=== PATIENT | female | born 1935 | race Caucasian/White ===

== ENCOUNTER → 2016-07-02 | Outpatient (CLI) | payer OTHER, MEDICARE ==
[~2016-07-02] MED LIST: ASPIR 8181 MG PO; BENZONATATE200 MG PO; CARDIZEM CD180 MG PO; CENTRUM SILVER1 EAC4 PO; CLARITIN10 MG PO; COZAAR 50 MG TA50 M2 PO; DEMADEX 2020 MG/1 TA PO; GLUCOTROL5 MG PO; HYDROCODONE-AP1 EAC6 PO; KLOR-CON 1010 MEQ PO; LOPRESSOR50 PO; METFORMIN HCL500 MG PO; PACERONE 200 M200 M1 PO; XARELTO15 MG PO; ZOCOR40 MG PO
== END ==
LOC: RAD 11:10
DX: R05 Cough (principal)

== ENCOUNTER → 2019-06-29 | Outpatient (CLI) | payer OTHER, MEDICARE | LOC: SJCVC 14:20 | DX: Z51.81 Encounter for therapeutic drug level monitoring (principal); I48.0 Paroxysmal atrial fibrillation; I11.0 Hypertensive heart disease with heart failure; I50.32 Chronic diastolic (congestive) heart failure; E11.9 Type 2 diabetes mellitus without complications; Z79.01 Long term (current) use of anticoagulants ==

== ENCOUNTER → 2019-07-26 | Outpatient (CLI) | payer OTHER, MEDICARE | LOC: SJCVC 11:27 | DX: Z51.81 Encounter for therapeutic drug level monitoring (principal); Z79.01 Long term (current) use of anticoagulants ==

== ENCOUNTER → 2019-08-25 | Outpatient (CLI) | payer OTHER, MEDICARE | LOC: SJCVC 12:10 | DX: Z51.81 Encounter for therapeutic drug level monitoring (principal); Z79.82 Long term (current) use of aspirin; Z79.01 Long term (current) use of anticoagulants; Z90.49 Acquired absence of other specified parts of digestive tract; Z79.899 Other long term (current) drug therapy ==

== ENCOUNTER → 2019-09-30 | Outpatient (CLI) | payer OTHER, MEDICARE | LOC: SJCVC 13:15 | DX: Z79.01 Long term (current) use of anticoagulants (principal); I48.91 Unspecified atrial fibrillation; E78.2 Mixed hyperlipidemia; G56.02 Carpal tunnel syndrome, left upper limb; I11.0 Hypertensive heart disease with heart failure; E78.00 Pure hypercholesterolemia, unspecified; M19.90 Unspecified osteoarthritis, unspecified site; E11.9 Type 2 diabetes mellitus without complications ==

== ENCOUNTER → 2019-11-04 | Outpatient (CLI) | payer OTHER, MEDICARE | LOC: SJCVC 13:33 | DX: Z51.81 Encounter for therapeutic drug level monitoring (principal); I48.0 Paroxysmal atrial fibrillation; I50.9 Heart failure, unspecified; I11.0 Hypertensive heart disease with heart failure; E11.9 Type 2 diabetes mellitus without complications; E78.00 Pure hypercholesterolemia, unspecified; E78.5 Hyperlipidemia, unspecified; E66.9 Obesity, unspecified; Z68.39 Body mass index [BMI] 39.0-39.9, adult; Z79.01 Long term (current) use of anticoagulants; Z79.82 Long term (current) use of aspirin; Z79.899 Other long term (current) drug therapy ==

== ENCOUNTER → 2019-12-02 | Outpatient (CLI) | payer OTHER, MEDICARE | LOC: SJCVC 13:26 | PROVIDERS: ATTEND Internal Medicine | DX: Z51.81 Encounter for therapeutic drug level monitoring (principal); I48.0 Paroxysmal atrial fibrillation; E11.9 Type 2 diabetes mellitus without complications; I11.0 Hypertensive heart disease with heart failure; I50.32 Chronic diastolic (congestive) heart failure; M15.9 Polyosteoarthritis, unspecified; E78.00 Pure hypercholesterolemia, unspecified; E66.9 Obesity, unspecified; Z68.35 Body mass index [BMI] 35.0-35.9, adult; Z79.01 Long term (current) use of anticoagulants; Z79.82 Long term (current) use of aspirin; Z79.84 Long term (current) use of oral hypoglycemic drugs; Z79.899 Other long term (current) drug therapy ==

== ENCOUNTER → 2019-12-14 | Outpatient (CLI) | payer OTHER, MEDICARE | LOC: SJCVCIMAG 07:45 | PROVIDERS: ATTEND Internal Medicine | DX: I08.8 Other rheumatic multiple valve diseases (principal); I48.92 Unspecified atrial flutter; I44.30 Unspecified atrioventricular block; R94.31 Abnormal electrocardiogram [ECG] [EKG]; I48.0 Paroxysmal atrial fibrillation; R53.83 Other fatigue; I11.0 Hypertensive heart disease with heart failure; I50.32 Chronic diastolic (congestive) heart failure; E78.5 Hyperlipidemia, unspecified; E11.9 Type 2 diabetes mellitus without complications; Z79.01 Long term (current) use of anticoagulants; Z79.82 Long term (current) use of aspirin; Z79.84 Long term (current) use of oral hypoglycemic drugs; Z95.4 Presence of other heart-valve replacement; Z79.899 Other long term (current) drug therapy; Z82.49 Family history of ischemic heart disease and other diseases of the circulatory system ==

== ENCOUNTER → 2019-12-21 | Outpatient (CLI) | payer OTHER, MEDICARE ==
[~2019-12-21] MED LIST changes: +ASA81BEC PO; +MAG6464 MG PO; +PACERONE200 MG PO; +TORSEMIDE20 MG PO; +XARELTO20 MG PO
== END ==
LOC: SJCVC 11:20
PROVIDERS: ATTEND Internal Medicine Cardiovascular Disease
DX: R94.31 Abnormal electrocardiogram [ECG] [EKG] (principal); I48.91 Unspecified atrial fibrillation

== ENCOUNTER → 2019-12-31 | Outpatient (CLI) | payer OTHER, MEDICARE ==
[~2019-12-31] VITALS: Ht 152.4 cm; Wt 82.6 kg
[2019-12-31 07:14] VITALS: BP 115/52
--- NOTE | 2019-12-31 10:00 | TEE ---
[facility] [place] [address] TRANSESOPHAGEAL ECHOCARDIOGRAM Name: JUNIE SOLANO Room #: REG WENDY Prakash#: [id number] Admission: 12/31/19 Attend Phys: Houston Martínez MD, Discharge: Date of : 39 Report #: [id number] THIS REPORT FOR: cc: Booker Martinez MD, Rene P. MD Lundgren, Craig H. MD [facility] ~ APPROVED REPORT Study performed: 12/31/2019 07:53:09 EXAM: Transesophageal Echocardiogram with Doppler and Cardioversion Patient Location: Out-Patient Room #: 9 Status: routine BSA: 1.81 HR: 112 bpm BP: 121/85 mmHg Rhythm: Atrial Fibrillation Other Information Study Quality: Good Indications Atrial Fibrillation Echo Enhancing Agent Indication: Rule out Shunt Agent(s) / Amount(s) Used: Agitated Saline 7 cc Procedure After obtaining informed consent, patient underwent transesophageal echo in the [employer]. Type of Sedation : Conscious Sedation Sedation was achieved intravenously with: Versed () Fentanyl (65 mcg) Transesophageal probe was inserted and advanced into esophagus without difficulty by Houston Martínez MD. Echo enhancement indication: R/O Septal defect. Echo enhancement agent administered: Agitated Saline The KELLIE was performed without complications. Synchronized Cardioversion acheived with 120 Joules after 1 attempt(s). Rhythm following Synchronized Cardioversion: Normal Sinus Rhythm [facility] [address] [place] [address] TRANSESOPHAGEAL ECHOCARDIOGRAM Name: JUNIE SOLANO Room #: REG [facility]#: [id number] Admission: 12/31/19 Attend Phys: Houston Martínez, Discharge: Date of : 39 Report #: [id number] Throughout the procedure, the blood pressure, pulse oximetry, cardiac rhythm, and rate were monitored. The patient tolerated the procedure without adverse effects. Recovery from conscious sedation was uneventful and vital signs were stable. Left Ventricle The left ventricle is normal size. There is normal LV segmental wall motion. There is normal left ventricular wall thickness. The left ventricular systolic function is normal. The left ventricular ejection fraction is within the normal range. LVEF is 55-60%. Right Ventricle The right ventricle is normal size. The right ventricular systolic function is normal. Atria Left atrium is dilated. No thrombus is visualized in the left atrium or appendage. No shunting by contrast bubble injection Right atrium is dilated. Aortic Valve Bioprosthetic aortic valve is present (s/p TAVR) No aortic regurgitation is present. There is no aortic valvular stenosis. Mitral Valve Moderate mitral annular calcification Moderate mitral regurgitation. No evidence of mitral valve stenosis. Tricuspid Valve The tricuspid valve is normal in structure. Mild tricuspid regurgitation. Pulmonic Valve The pulmonary valve is normal in structure. There is no pulmonic valvular regurgitation. Great Vessels The aortic root is normal in size. The ascending aorta is normal in size. IVC is normal in size and collapses >50% with inspiration. Pericardium There is no pericardial effusion. [facility] [address] [place] [address] TRANSESOPHAGEAL ECHOCARDIOGRAM Name: JUNIE SOLANO Room #: REG [facility]#: [id number] Admission: 12/31/19 Attend Phys: Houston Martínez, Discharge: Date of : 39 Report #: [id number] <Conclusion> The left ventricular systolic function is normal. There is normal LV segmental wall motion. LVEF is 55-60%. Both atria are dilated. No thrombus is visualized in the left atrium or appendage. No shunting by contrast bubble injection Bioprosthetic aortic valve is present (s/p TAVR). No aortic regurgitation or stenosis. Moderate mitral annular calcification. Moderate mitral regurgitation. There is no pericardial effusion. Successful cardioversion of atrial fibrillation to sinus rhythm following a single 120 J biphasic synchronous shock. <ELECTRONICALLY SIGNED> By: Houston Martínez MD, FACC 12/31/19 1000 1000 9 Houston Martínez MD, FACC /INF
== END | disposition home or self-care (01) ==
LOC: CATH 06:20
PROVIDERS: ATTEND Internal Medicine
DX: I48.91 Unspecified atrial fibrillation (principal); I08.1 Rheumatic disorders of both mitral and tricuspid valves; I11.0 Hypertensive heart disease with heart failure; I50.9 Heart failure, unspecified; E11.9 Type 2 diabetes mellitus without complications; E78.00 Pure hypercholesterolemia, unspecified; Z98.890 Other specified postprocedural states; Z79.899 Other long term (current) drug therapy; Z11.59 Encounter for screening for other viral diseases; Z90.49 Acquired absence of other specified parts of digestive tract; Z79.4 Long term (current) use of insulin; Z79.01 Long term (current) use of anticoagulants; Z79.82 Long term (current) use of aspirin; Z95.2 Presence of prosthetic heart valve

== ENCOUNTER → 2020-02-02 | Outpatient (CLI) | payer OTHER, MEDICARE | LOC: SJCVC 13:36 | PROVIDERS: ATTEND Internal Medicine Cardiovascular Disease | DX: I48.0 Paroxysmal atrial fibrillation (principal); R94.31 Abnormal electrocardiogram [ECG] [EKG]; I11.0 Hypertensive heart disease with heart failure; I50.32 Chronic diastolic (congestive) heart failure; E11.9 Type 2 diabetes mellitus without complications; E78.5 Hyperlipidemia, unspecified; Z79.01 Long term (current) use of anticoagulants; Z95.2 Presence of prosthetic heart valve; Z79.82 Long term (current) use of aspirin; Z79.899 Other long term (current) drug therapy; Z82.49 Family history of ischemic heart disease and other diseases of the circulatory system ==

== ENCOUNTER → 2020-02-07 | Outpatient (CLI) | payer OTHER, MEDICARE ==
[~2020-02-07] MED LIST changes: +AVAPRO300 MG PO; +DEMADEX20 MG PO; +LOPRESSOR100 M1 PO; +LOPRESSOR50 MG PO; +ZOCOR20 MG PO
[2020-02-07 10:27] LABS: ABSOLUTE NEUTROPHILS 2.2 thou/uL (1.4-8.2); BASOPHILS 1.4 % (0.0-2.0); EOSINOPHILS 6.1 % (0.0-3.0); HEMATOCRIT 32.5 % (37.0-47.0); HEMOGLOBIN 10.8 gm/dL (12.0-15.0); LYMPHOCYTES 36.8 % (24.0-44.0); MCH 30.5 pg (26.0-34.0); MCHC 33.2 g/dL (28.0-37.0); MCV 91.9 fL (80.0-100.0); MONOCYTES 10.8 % (1.0-8.0); PLATELET COUNT 250 thou/uL (150-400); POLYS 44.9 % (36.0-66.0); RBC 3.54 mil/uL (4.20-5.00); RDW 15.4 % (10.5-14.5); WBC 4.8 thou/uL (4.0-11.0)
[2020-02-07 10:41] LABS: ALBUMIN 3.6 g/dL (3.4-5.0); CALCIUM 9.1 mg/dL (8.5-10.1); CREATININE 1.6 mg/dL (0.6-1.0); POTASSIUM 4.5 mmol/L (3.5-5.1); TOTAL BILIRUBIN 0.6 mg/dL (0.2-1.0); TOTAL PROTEIN 7.4 g/dL (6.4-8.2)
== END ==
LOC: CAT 09:27 → LAB 11:21
PROVIDERS: ATTEND Internal Medicine Cardiovascular Disease
DX: Z01.818 Encounter for other preprocedural examination (principal); I25.10 Atherosclerotic heart disease of native coronary artery without angina pectoris; I48.91 Unspecified atrial fibrillation; Z20.828 Contact with and (suspected) exposure to other viral communicable diseases

== ENCOUNTER 2020-02-11 09:16 | Outpatient (CLI) | payer OTHER, MEDICARE ==
[~2020-02-11] VITALS: Ht 154.9 cm; Wt 83.0 kg
[2020-02-11] VITALS (10 sets, daily range): BP systolic 108–161; BP diastolic 32–84
[~2020-02-11 09:16] MED LIST changes: -AVAPRO300 MG PO; -DEMADEX20 MG PO; -LOPRESSOR100 M1 PO; -LOPRESSOR50 MG PO; -ZOCOR20 MG PO
[2020-02-11] MEDS ORDERED: LOPRESSOR50 MG PO (10:39)
[2020-02-11] MEDS ORDERED: LOPRESSOR100 M1 PO (10:39)
[2020-02-11] MEDS ORDERED: DEMADEX20 MG PO (10:41)
[2020-02-11 10:43] LABS: HEMATOCRIT 32.2 % (37.0-47.0); HEMOGLOBIN 10.6 gm/dL (12.0-15.0); MCH 30.1 pg (26.0-34.0); MCV 91.2 fL (80.0-100.0); PLATELET COUNT 241 thou/uL (150-400); RBC 3.54 mil/uL (4.20-5.00); RDW 14.9 % (10.5-14.5); WBC 4.1 thou/uL (4.0-11.0)
[2020-02-11] MEDS ORDERED: ZOCOR20 MG PO (10:43)
[2020-02-11] MEDS ORDERED: AVAPRO300 MG PO (10:43)
[2020-02-11 10:50] LABS: CREATININE 1.4 mg/dL (0.6-1.0); POTASSIUM 4.3 mmol/L (3.5-5.1)
[2020-02-11 10:58] LABS: ALBUMIN 3.5 g/dL (3.4-5.0); TOTAL BILIRUBIN 0.7 mg/dL (0.2-1.0); TOTAL PROTEIN 7.6 g/dL (6.4-8.2)
[2020-02-11 11:04] LABS: APTT 32.9 Seconds (24.5-32.8); INR 1.1; PROTIME 11.4 Seconds (9.3-11.4)
[2020-02-11 11:11] LABS: ABSOLUTE NEUTROPHILS 2.1 thou/uL (1.4-8.2)
[2020-02-11 11:13] LABS: ANISOCYTOSIS 1+
--- NOTE | 2020-02-11 16:11 | NUR ---
JAMES RN TOOK REPORT, I REC PT IMMEDIATELY AFTER LUNCH, WILL GET CLARIFICATION ON ORDERS, STOP COCK CLOSURE AND PT COUGHING YET PLACING PRESSURE APPEARS DANGEROUS. WILL DO ADMISSION WITH HELP OF HER AND SPOUSE, SHE IS A&0X4, NORMALLY AMB WITHOUT ANY ASSISTIVE DEVICE. ENCOURAGED HER AND SPOUSE TO USE CALL LIGHT FOR ANY NEEDS. WILL CONTINUE TO MONITOR
[2020-02-12 00:37] VITALS: BP 123/41
[2020-02-12 03:30] VITALS: BP 136/61
[2020-02-12 08:11] VITALS: BP 150/69
--- NOTE | 2020-02-12 08:19 | NUR ---
ASSUME CARE 1900. PT/VITALS STABLE. MODERATE ACTIVTIY TOLERANCE. DENEIS ANY PAIN. ASSESSMENT CHARTED. PROGRESSING MODERATELY WITH POC. SR ON MONITOR WITH NO DISTRESS NOTED. PT PASSING FLATUS BUT NO BM NOTED. BORDERLINE URINE OUTPUT, BRAY LEFT IN PLACE AND COMMUNICATED TO DAY NURSE TO MONITOR URIEN OUTPUT. IF IMPROVING, THEN BRAY CAN BE D/C'ED. PT ENCOURAGED TO DRINK PLENTY OF FLUIDS. REGULAR HR RATE/RYHTHM NOTED. THROUGH THE SHIFT. PLAN IS POSSIBLE DISCHARGE TODAY. WILL CONTINUE TO MONITOR AND FOLLOW WITH POC
--- NOTE | 2020-02-12 09:35 | NUR ---
ASSUMED CARE OF PT AT SHIFT CHANGE, A&0X4, SITE CDI, PT HAD BLED AGAIN AFTER BEING ASSESSED LAST NIGHT. MINIMAL OUTPUT, MORE NOW THIS A.M. AND MORE MURRAY, PT DRINKING FLUIDS, BRAY REMAINS IN PLACE TO ENSURE ADEQUATE OUTPUT. AMB STEADY AND SLOWLY, BLOOD SUGAR CHECKS, AM AMIODARONE NOT AVAILABLE, WILL GIVE WHEN AVAILABLE. ENCOURAGED PT TO USE CALL LIGHT FOR ANY NEEDS
[2020-02-12 11:02] VITALS: BP 126/59
[2020-02-12 14:08] VITALS: BP 126/59
--- NOTE | 2020-02-14 11:36 | P ---
[facility] [place] [address] PROCEDURE REPORT Name: JUNIE SOLANO Room #: DEP WENDY Prakash#: [id number] Admission: 02/11/20 Attend Phys: Andrew Ruffin MD Discharge: 02/12/20 Date of : 39 Report #: [id number] THIS REPORT FOR: cc: Booker Martinez MD, Rene P. MD Couchonnal, Luis F. MD ~ CC: Andrew Martinez ATRIAL FIBRILLATION ABLATION PREOPERATIVE DIAGNOSIS: Atrial fibrillation. POSTOPERATIVE DIAGNOSIS: Atrial fibrillation. PROCEDURES PERFORMED: 1. Atrial fibrillation ablation, CPT code 63777. 2. 3D mapping, CPT code 76144. 3. Intracardiac echo, CPT code 82195. 4. Focal ablation, CPT code 45334. HISTORY: The patient is an 84-year-old female with a history of recurrent atrial fibrillation as well as prior aortic stenosis, status post surgical followed by TAVR repair. She has had clinical recurrence despite antiarrhythmic drug therapy and she is here for an ablation. ANESTHESIA: The patient underwent general anesthesia with no anesthesia-related complications. DESCRIPTION OF PROCEDURE: The patient underwent informed consent. We discussed the details of the procedure including the risks, which include but not limited to bleeding, infection, vascular damage, cardiac perforation, stroke and ND. She understood these risks and is willing to proceed. The patient was brought to EP laboratory in fasting and sedated state, prepped and draped in a sterile fashion and injected lidocaine to the right groin region, obtained access to the right femoral vein x 3, placing an 8, 9 and 7-Belizean short sheath using the modified Seldinger technique. Next, under fluoroscopy, a decapolar catheter was placed easily in the coronary sinus and ICE catheter was placed in the right atrium. Using intracardiac ultrasound, a 3D geometry of the left atrium was created with emphasis of the two left and two right pulmonary veins. This was merged with the cardiac CT scan. The patient was then systemically heparinized and transseptal was performed using an SL1 sheath and a Eldridge needle. She did have somewhat of a thick interatrial septum. I was able to get my SL1 sheath into the left atrium and then exchanged for the cryo sheath. 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 I then placed the cryoballoon into the left atrium and we started by [address] [address] PROCEDURE REPORT Name: JUNIE SOLANO Room #: DEP [facility] Dwain#: [id number] Admission: 02/11/20 Attend Phys: Andrew Ruffin MD Discharge: 02/12/20 Date of : 39 Report #: [id number] isolating the pulmonary veins. In the left superior pulmonary vein, I started by doing a 60-second freeze, but temperatures were poor, so I came off. I performed 280-second freezes. This did not appear to result in isolation. I therefore went to the right inferior pulmonary vein. I performed a 4-minute freeze, which resulted in isolation in 40 seconds and I performed a second freeze of 180 seconds' duration. I then went back to the left inferior pulmonary vein, hoping that this had isolated it, but that was not the case. I therefore performed another 180-second freeze, which resulted in slowing, but did not result in isolation. I therefore performed an injection of the vein and I got a good seal wall really clocking the balloon. This final freeze was of 4 minutes' duration and resulted in isolation within 70 seconds. I then turned my attention to the right inferior pulmonary vein. The right inferior pulmonary vein underwent a 4-minute freeze resulting in isolation in 24 seconds and the right superior pulmonary vein underwent a single 180-second freeze as the vein isolated within 57 seconds. I then decided to perform posterior wall isolation. I performed 3 freezes along the posterior roofline anchored from the left superior pulmonary vein and I performed 3 freezes anchored from the left inferior pulmonary vein along the posterior wall as well. This did result in organization of the atrial fib into a left-sided atrial flutter. This did not result in termination of this left-sided flutter and it eventually did degenerate back into AFib. Of note, while performing the posterior wall freezes, I closely monitored the esophageal temperatures. These all remained within normal limits. Each of these posterior wall freezes was of 3 minutes' duration. I therefore removed the cryoballoon from the left atrium and created a detailed voltage map which showed that we had isolated all 4 pulmonary veins and also isolated the posterior wall of the left atrium. At this point, we performed a cardioversion with muslim of sinus rhythm. Post-ablation, there was no pericardial effusion. The patient received systemic protamine and a [id number]-xy-tbsqy suture was performed to the right groin region with a 3-way stopcock placed to obtain hemostasis. The patient awoke neurologically and hemodynamically intact. No complications and no significant bleeding. CONCLUSIONS: 1. Successful atrial fibrillation ablation. 2. Successful pulmonary vein isolation. 3. Successful left atrial posterior wall isolation. <ELECTRONICALLY SIGNED> By: Andrew Ruffin MD 02/14/20 1136 1530 1547 Andrew Ruffin MD /win
--- NOTE | 2020-02-14 12:41 | D ---
[facility] [place] [address] [place] [address] DISCHARGE SUMMARY Name: JUNIE SOLANO Room #: DEP [facility]#: [id number] Admission: 02/11/20 Attend Phys: Andrew Ruffin MD Discharge: 02/12/20 Date of : 39 Report #: [id number] THIS REPORT FOR: cc: Booker Martinez MD, Rene P. MD Lammoglia, Francisco J. MD ~ THIS REPORT FOR: //name// CC: Andrew Martinez DATE OF SERVICE: 02/12/2020 ADMITTING DIAGNOSES: 1. Symptomatic paroxysmal atrial fibrillation. 2. Tachybrady syndrome. 3. Valvular heart disease, status post aortic valve replacement. 4. Hypertension. 5. Heart failure with preserved ejection fraction. DISCHARGE MEDICATIONS: Home meds. PROCEDURE PERFORMED: Atrial fibrillation ablation. FOLLOWUP: 1. Dr. Ruffin in 3 months. 2. Primary care in 10-14 days. DISCHARGE DIET: Home diet. BRIEF CLINICAL HISTORY: The patient was admitted to the hospital for her atrial fibrillation and underwent uncomplicated atrial fibrillation. The patient post-procedure had some mild oozing from the puncture site, but this was controlled with added pressure and rest. She is ambulating without any significant changes or abnormalities currently and is being discharged in stable and improved condition. <ELECTRONICALLY SIGNED> By: Shawn Bonilla MD 02/14/20 1241 1042 1138 Shawn Bonilla MD /win
== END 2020-02-12 12:45 | disposition home or self-care (01) ==
LOC: CATH 09:16 → 2N 16:18 → CATH 02-12 12:45
PROVIDERS: ATTEND Internal Medicine Cardiovascular Disease
DX: I48.91 Unspecified atrial fibrillation (principal); I11.0 Hypertensive heart disease with heart failure; I50.9 Heart failure, unspecified; E78.00 Pure hypercholesterolemia, unspecified; E11.9 Type 2 diabetes mellitus without complications; E78.5 Hyperlipidemia, unspecified; Z98.890 Other specified postprocedural states; Z79.899 Other long term (current) drug therapy; Z79.01 Long term (current) use of anticoagulants; Z95.2 Presence of prosthetic heart valve
CPT/HCPCS: 10081; 62110; 62900; 65020; 65040; 70005

== ENCOUNTER → 2020-03-09 | Outpatient (CLI) | payer OTHER, MEDICARE ==
[~2020-03-09] MED LIST changes: +AVAPRO300 MG PO; +DEMADEX20 MG PO; +LOPRESSOR100 M1 PO; +LOPRESSOR50 MG PO; +ZOCOR20 MG PO
== END ==
LOC: SJCVC 10:47
PROVIDERS: ATTEND Internal Medicine
DX: I48.0 Paroxysmal atrial fibrillation (principal); I11.0 Hypertensive heart disease with heart failure; I50.32 Chronic diastolic (congestive) heart failure; E11.9 Type 2 diabetes mellitus without complications; E78.5 Hyperlipidemia, unspecified; Z79.01 Long term (current) use of anticoagulants; Z95.2 Presence of prosthetic heart valve; Z79.899 Other long term (current) drug therapy; Z85.3 Personal history of malignant neoplasm of breast; Z90.49 Acquired absence of other specified parts of digestive tract; Z95.4 Presence of other heart-valve replacement; Z82.49 Family history of ischemic heart disease and other diseases of the circulatory system

== ENCOUNTER → 2020-05-17 | Outpatient (CLI) | payer OTHER, MEDICARE | LOC: SJCVC 13:40 | PROVIDERS: ATTEND Internal Medicine Cardiovascular Disease | DX: R94.31 Abnormal electrocardiogram [ECG] [EKG] (principal); I45.10 Unspecified right bundle-branch block; I44.0 Atrioventricular block, first degree; I48.0 Paroxysmal atrial fibrillation; I11.0 Hypertensive heart disease with heart failure; I50.32 Chronic diastolic (congestive) heart failure; E11.9 Type 2 diabetes mellitus without complications; Z95.2 Presence of prosthetic heart valve; Z79.01 Long term (current) use of anticoagulants; Z79.82 Long term (current) use of aspirin; Z79.899 Other long term (current) drug therapy ==

== ENCOUNTER → 2020-08-03 | Outpatient (CLI) | payer OTHER, MEDICARE | LOC: SJCVC 14:23 | PROVIDERS: ATTEND Internal Medicine Cardiovascular Disease | DX: I48.91 Unspecified atrial fibrillation (principal); R94.31 Abnormal electrocardiogram [ECG] [EKG]; I45.10 Unspecified right bundle-branch block; I11.0 Hypertensive heart disease with heart failure; I50.32 Chronic diastolic (congestive) heart failure; E11.9 Type 2 diabetes mellitus without complications; I27.20 Pulmonary hypertension, unspecified; E78.5 Hyperlipidemia, unspecified; Z95.2 Presence of prosthetic heart valve; Z90.49 Acquired absence of other specified parts of digestive tract; Z98.890 Other specified postprocedural states; Z79.82 Long term (current) use of aspirin; Z79.84 Long term (current) use of oral hypoglycemic drugs; Z79.899 Other long term (current) drug therapy; Z82.49 Family history of ischemic heart disease and other diseases of the circulatory system ==

== ENCOUNTER → 2020-08-14 | Outpatient (CLI) | payer OTHER, MEDICARE | LOC: LAB 08:41 | PROVIDERS: ATTEND Family Medicine | DX: Z01.812 Encounter for preprocedural laboratory examination (principal); Z20.822 Contact with and (suspected) exposure to COVID-19 ==

== ENCOUNTER → 2020-08-17 | Outpatient (CLI) | payer OTHER, MEDICARE ==
[~2020-08-17] VITALS: Ht 154.9 cm; Wt 78.9 kg
--- NOTE | ~2020-08-17 | P ---
[facility] [place] [address] PROCEDURE REPORT Name: JUNIE SOLANO Room #: REG [facility].#: [id number] Admission: 08/17/20 Attend Phys: Andrew Ruffin MD Discharge: Date of : 39 Report #: [id number] THIS REPORT FOR: cc: Booker Martinez MD, Rene P. MD ~ PROCEDURE: Cardioversion. PREOPERATIVE DIAGNOSIS: Atrial fibrillation. POSTOPERATIVE DIAGNOSIS: Atrial fibrillation. DESCRIPTION OF PROCEDURE: The patient underwent informed consent. She was prepped and draped in the standard fashion. She was sedated by the Anesthesiology Service and then underwent 200 joules synchronized cardioversion with buddhism of sinus rhythm. There were no complications. CONCLUSION: Successful DC cardioversion with buddhism of sinus rhythm. By: 1150 1845 /nt
[2020-08-17 10:40] VITALS: BP 155/86
--- NOTE | 2020-08-17 11:00 | EKG ---
[place] [address] [address] [facility] [employer] [address] ELECTROCARDIOGRAM REPORT Name: JUNIE SOLANO Room #: [facility]#: [id number] Admission: 08/17/20 Attend Phys: Andrew Ruffin MD Discharge: Date of : 39 Report #: [id number] [facility] Test Date: 2020-08-17 Test Time: 10:42:47 Pat Name: JUNIE SOLANO Department: Room: Gender: F Chicken Handler: : 1935 Requested By: Andrew Ruffin Order Number: [id number] MD: Otto Adams Measurements Intervals [place] Rate: 112 P: 0 WI: QRS: 109 QRSD: 152 T: -34 QT: 421 QTc: 575 Interpretive Statements Sinus tachycardia Right bundle branch block Abnormal T, consider ischemia, lateral leads Compared to ECG 05/27/2016 09:13:11 Right bundle-branch block now present Possible ischemia now present Sinus rhythm no longer present T-wave abnormality still present Electronically Signed On 08-17-2020 11:00:27 [employer]PER[employer] by Otto Adams [email or web address] <ELECTRONICALLY SIGNED> By: Otto Adams MD, FACC 08/17/20 1100 1042 1042 Otto Adams MD, [facility] /EPI
[2020-08-17 11:02] LABS: ABSOLUTE NEUTROPHILS 1.7 thou/uL (1.4-8.2); BASOPHILS 1.1 % (0.0-2.0); EOSINOPHILS 5.8 % (0.0-3.0); HEMOGLOBIN 11.6 gm/dL (12.0-15.0); MCH 27.3 pg (26.0-34.0); MCHC 33.1 g/dL (28.0-37.0); MCV 82.4 fL (80.0-100.0); MONOCYTES 15.1 % (1.0-8.0); PLATELET COUNT 215 thou/uL (150-400); RBC 4.25 mil/uL (4.20-5.00); RDW 17.2 % (10.5-14.5); WBC 4.1 thou/uL (4.0-11.0)
[2020-08-17 11:11] LABS: CALCIUM 9.4 mg/dL (8.5-10.1); CREATININE 1.9 mg/dL (0.6-1.0); POTASSIUM 4.5 mmol/L (3.5-5.1)
[2020-08-17 11:16] LABS: INR 1.4; PROTIME 15.2 Seconds (9.3-11.4)
== END | disposition home or self-care (01) ==
LOC: CATH 07:47
PROVIDERS: ATTEND Internal Medicine Cardiovascular Disease
DX: I48.91 Unspecified atrial fibrillation (principal); I11.0 Hypertensive heart disease with heart failure; I50.30 Unspecified diastolic (congestive) heart failure; E11.9 Type 2 diabetes mellitus without complications; E78.00 Pure hypercholesterolemia, unspecified; E78.5 Hyperlipidemia, unspecified; Z98.890 Other specified postprocedural states; Z79.899 Other long term (current) drug therapy; Z79.01 Long term (current) use of anticoagulants; Z95.2 Presence of prosthetic heart valve
CPT/HCPCS: 62110; 62900

== ENCOUNTER → 2020-09-19 | Outpatient (CLI) | payer OTHER, MEDICARE | LOC: SJCVC 10:53 | PROVIDERS: ATTEND Internal Medicine Cardiovascular Disease | DX: R94.31 Abnormal electrocardiogram [ECG] [EKG] (principal); I44.0 Atrioventricular block, first degree; I45.10 Unspecified right bundle-branch block; I48.19 Other persistent atrial fibrillation; I44.7 Left bundle-branch block, unspecified; I11.0 Hypertensive heart disease with heart failure; I50.32 Chronic diastolic (congestive) heart failure; I35.0 Nonrheumatic aortic (valve) stenosis; E78.5 Hyperlipidemia, unspecified; E11.9 Type 2 diabetes mellitus without complications; Z79.82 Long term (current) use of aspirin; Z79.84 Long term (current) use of oral hypoglycemic drugs; Z79.899 Other long term (current) drug therapy; Z95.4 Presence of other heart-valve replacement ==

== ENCOUNTER → 2020-11-22 | Outpatient (CLI) | payer OTHER, MEDICARE | LOC: SJCVCIMAG 08:32 | PROVIDERS: ATTEND Internal Medicine | DX: I08.1 Rheumatic disorders of both mitral and tricuspid valves (principal); R94.31 Abnormal electrocardiogram [ECG] [EKG]; I44.0 Atrioventricular block, first degree; I45.10 Unspecified right bundle-branch block; I77.819 Aortic ectasia, unspecified site; I27.20 Pulmonary hypertension, unspecified; I48.0 Paroxysmal atrial fibrillation; I11.0 Hypertensive heart disease with heart failure; I50.32 Chronic diastolic (congestive) heart failure; E78.5 Hyperlipidemia, unspecified; E11.9 Type 2 diabetes mellitus without complications; Z95.2 Presence of prosthetic heart valve; Z90.49 Acquired absence of other specified parts of digestive tract; Z79.01 Long term (current) use of anticoagulants; Z79.84 Long term (current) use of oral hypoglycemic drugs; Z79.82 Long term (current) use of aspirin; Z79.899 Other long term (current) drug therapy; Z82.49 Family history of ischemic heart disease and other diseases of the circulatory system ==

== ENCOUNTER → 2021-05-11 | Day surgery (SDC) | payer OTHER, MEDICARE ==
[~2021-05-11] VITALS: Ht 154.9 cm; Wt 83.9 kg
[~2021-05-11] MED LIST changes: +PERCOCET 7.5-31 EAC1 PO; +TRAMADOL 50 MG50 MG PO
--- NOTE | ~2021-05-11 | O ---
[facility] [place] [address] [place] [address] OPERATIVE REPORT Name: JUNIE SOLANO Room #: REG [facility].#: [id number] Admission: 05/11/21 Attend Phys: Valente Tejeda MD Discharge: Date of : 39 Report #: [id number] THIS REPORT FOR: cc: Booker Martinez MD, Rene P. MD Kneidel,Valente Briscoe MD ~ DATE OF SERVICE: 05/11/2021 PREOPERATIVE DIAGNOSIS: Left distal fibula fracture. POSTOPERATIVE DIAGNOSIS: Left distal fibula fracture. PROCEDURE: Left fibula open reduction and internal fixation. SURGEON: Valente Tejeda MD [employer]UST[employer]AL SALES ENGINEER: None. ANESTHESIA: General. ESTIMATED BLOOD LOSS: Minimal. DRAINS: No drains. TOURNIQUET TIME: 40 minutes. DESCRIPTION OF PROCEDURE: The patient was brought to the operating room where she was placed under general anesthesia. Once under adequate general anesthesia, her left lower extremity was prepped and draped in a sterile manner. The extremity was elevated, exsanguinated, and tourniquet placed to 300 mmHg. A lateral incision 8 cm in length was made over the distal fibula. This was dissected down through the soft tissue to the fracture site on the fibula. The fracture was then exposed and any intervening hematoma was removed with a Andale elevator and irrigation. Once removed, an open reduction was achieved with a bone reduction tenaculum. This was provisionally fixed with a K-wire and then subsequent final fixation with a 1/3 tubular plate, 4 screws proximal and 3 screws distal to the fracture site were able to be placed. Fluoroscopy was used to verify the reduction to be excellent. The wound was then irrigated copiously and closed with 2-0 Vicryl in deep and subcutaneous tissues and cornel were used for the skin. The wounds were dressed with Xeroform, 4 x 4's, and a sterile soft compressive dressing was placed. Tourniquet was let down at approximately 40 minutes. Toes were pink and warm with good capillary refill. [facility] [address] [place] [address] OPERATIVE REPORT Name: JUNIE SOLANO Augusto Room #: REG [facility].#: [id number] Admission: 05/11/21 Attend Phys: Valente Tejeda MD Discharge: Date of : 39 Report #: [id number] There were no complications from the procedure. The patient tolerated the procedure well and was to the recovery room without incident. By: 1353 1403 Valente Tejeda MD /nt
[2021-05-11 13:09] VITALS: BP 165/65
[2021-05-11 14:55] VITALS: BP 165/65
== END | disposition home or self-care (01) ==
LOC: OR 10:03
PROVIDERS: ATTEND Orthopaedic Surgery Foot and Ankle Surgery
DX: S82.832A Other fracture of upper and lower end of left fibula, initial encounter for closed fracture (principal); I11.0 Hypertensive heart disease with heart failure; I50.9 Heart failure, unspecified; I48.0 Paroxysmal atrial fibrillation; E11.9 Type 2 diabetes mellitus without complications; E78.5 Hyperlipidemia, unspecified; Z98.890 Other specified postprocedural states; Z79.899 Other long term (current) drug therapy; Z79.82 Long term (current) use of aspirin; Z20.822 Contact with and (suspected) exposure to COVID-19; Z85.3 Personal history of malignant neoplasm of breast; X58.XXXA Exposure to other specified factors, initial encounter; Y93.89 Activity, other specified; Y92.89 Other specified places as the place of occurrence of the external cause; Y99.8 Other external cause status
CPT/HCPCS: 50010; 50101; 50386; 51131; 51272; 51412; 56524; 56525; 56667; 57091; 57180; 62110; 62900; 70005

== ENCOUNTER → 2021-07-10 | Outpatient (CLI) | payer OTHER, MEDICARE | LOC: SJCVC 13:53 | PROVIDERS: ATTEND Internal Medicine | DX: R94.31 Abnormal electrocardiogram [ECG] [EKG] (principal); I45.10 Unspecified right bundle-branch block; I11.0 Hypertensive heart disease with heart failure; I50.32 Chronic diastolic (congestive) heart failure; E11.9 Type 2 diabetes mellitus without complications; E78.5 Hyperlipidemia, unspecified; D50.9 Iron deficiency anemia, unspecified; I48.0 Paroxysmal atrial fibrillation; I34.0 Nonrheumatic mitral (valve) insufficiency; I35.2 Nonrheumatic aortic (valve) stenosis with insufficiency; Z95.2 Presence of prosthetic heart valve; Z79.01 Long term (current) use of anticoagulants; Z79.82 Long term (current) use of aspirin; Z79.84 Long term (current) use of oral hypoglycemic drugs; Z79.899 Other long term (current) drug therapy; Z82.49 Family history of ischemic heart disease and other diseases of the circulatory system ==

== ENCOUNTER → 2021-07-24 | Outpatient (CLI) | payer OTHER, MEDICARE | LOC: SJCVC 11:18 | PROVIDERS: ATTEND Internal Medicine | DX: I11.0 Hypertensive heart disease with heart failure (principal); I50.32 Chronic diastolic (congestive) heart failure; I48.0 Paroxysmal atrial fibrillation; E11.9 Type 2 diabetes mellitus without complications; E78.5 Hyperlipidemia, unspecified; D50.9 Iron deficiency anemia, unspecified; R04.0 Epistaxis; I34.0 Nonrheumatic mitral (valve) insufficiency; Z95.2 Presence of prosthetic heart valve; Z79.01 Long term (current) use of anticoagulants; Z79.82 Long term (current) use of aspirin; Z79.84 Long term (current) use of oral hypoglycemic drugs; Z79.899 Other long term (current) drug therapy ==

== ENCOUNTER → 2021-08-06 | Outpatient (CLI) | payer OTHER, MEDICARE | LOC: LAB 07-30 12:47 | PROVIDERS: ATTEND Internal Medicine | DX: D50.8 Other iron deficiency anemias (principal); K90.89 Other intestinal malabsorption ==